=== PATIENT | female | born 1955 | race Caucasian/White ===

== ENCOUNTER 2016-11-05 10:29 | Inpatient (IN) | payer OTHER ==
[~2016-11-05] VITALS: Ht 160 cm; Wt 97.0 kg
[~2016-11-05 10:29] MED LIST: ADVAIR HFA120 INHAL1 IH; ADVIL,NUPRIN,M200 MG PO; ALIVE WOMEN'S1 EAC1 PO; ATIVAN0.5 MG PO; B COMPLETE1 EACH PO; BACTRIM,SEPT1 TABLET PO; BISOPROLOL FUMAR5 MG PO; BUSPAR10 MG PO; BUSPAR15 MG PO; CELEXA20 MG PO; CITALOPRAM HBR20 MG PO; CLOTRIMAZOLE-BE15 GM TP; COZAAR100 MG PO; CRESTOR10 MG PO; CYANOCOBAL1000 MCG/2 IM; DAILY VITE WIT1 EACH PO; DAILY VITE1 EAC1 PO; DILAUDID4 MG PO; ERGOCALCIF50000 UNIT PO; FIBER500 MG PO; FUROSEMIDE40 MG PO; GABAPENTIN600 MG PO; K-DUR10 MEQ PO; K-DUR20 MEQ PO; LASIX20 MG PO; LASIX40 MG PO; LEVAQUIN500 MG PO; LEVAQUIN750 MG PO; LOPRESSOR50 MG PO; LORAZEPAM0.5 MG PO; LORTISONE CREAM TP; LOSARTAN POTAS100 MG PO; LOTRISONE15 GM TP; MORPHINE SULFA100 M2 PO; MORPHINE SULFAT15 MG PO; MOTRIN800 MG PO; MS CONTIN,ORAMO15 M1 PO; MS CONTIN,ORAMO60 MG PO; NEURONTIN300 MG PO; NYSTATIN100000 UN1 PO; OPANA ER40 MG PO; PRADAXA75 MG PO; PREDNISONE10 MG PO; PROAIR HFA8.5 GM IH; PROBIOTIC1 EAC1 PO; PROTONIX40 MG PO; SEROQUEL XR150 MG PO; SPIRIVA RESPIMAT4 GM IH; SPIRONOLACTONE25 MG GT; SYMBICORT60 INHALAT IH; WELLBUTRIN XL150 MG PO; ZEBETA5 MG PO
[2016-11-05 10:54] LABS: POINT-OF-CARE METER ID UU13113702
[2016-11-05 11:05] LABS: BASOPHIL COUNT 0.1 K/uL (0-0.1); EOSINOPHIL (%) 0.5 % (0-5); EOSINOPHIL COUNT 0.1 K/uL (0-0.3); HEMATOCRIT 44.1 % (36.0-46.0); IMMATURE GRANULOCYTE COUNT 0.2 K/uL; INSTRUMENT ABS NEUTROPHIL CT 9.8 K/uL; LYMPHOCYTE COUNT 5.9 K/uL (1.0-2.8); MCH 31.1 PG (29.0-34.0); MCHC 32.2 G/DL (30.0-36.0); MCV 96.5 FL (83-99); MEAN PLAT.VOLUME 9.6 uM^3 (9.5-12.4); MONOCYTE (%) 7.8 % (3-12); MONOCYTE COUNT 1.4 K/uL (0-0.8); NEUTROPHIL (%) 56.4 % (45-76); NEUTROPHIL COUNT 9.8 K/uL (1.8-6.4); NRBC (%) 0.1 /100 WBC (0-0); PLATELET COUNT 304 K/uL (156-360); RBC DIS.WIDTH-CV 14.2 % (11.8-14.6); RBC DIS.WIDTH-SD 49.3 % (39-53); RED BLOOD COUNT 4.57 M/uL (3.80-5.20); WHITE BLOOD COUNT 17.4 K/uL (4.1-10.2)
[2016-11-05 11:15] LABS: INTER. NORMALIZED RATIO 1.1; PROTHROMBIN TIME 10.7 (9.2-11.2); PTT 36.8 (25-32)
[2016-11-05 11:21] LABS: CHLORIDE 105 mEq/L (99-109); SODIUM 138 mEq/L (136-147)
[2016-11-05 11:23] LABS: AMYLASE 58 IU/L (1-118)
[2016-11-05 11:24] LABS: GLUCOSE 265 mg/dL (70-99)
[2016-11-05 11:25] LABS: ANION GAP 24 MEQ/L (2-14); TOTAL BILIRUBIN 0.3 mg/dL (0.0-1.0)
[2016-11-05 11:26] LABS: SERUM ETHYL ALCOHOL < 10 mg/dL
[2016-11-05 11:27] LABS: GFR ESTIMATE (CALCULATED) 40 mL/min/
[2016-11-05 11:28] LABS: TROP-I INTERPRETATION NEGATIVE; TROPONIN-I < 0.01 ng/mL (0.0-0.30)
[2016-11-05 11:28] LABS: ALKALINE PHOSPHATASE 153 IU/L (3-129)
[2016-11-05 11:29] LABS: UREA NITROGEN (BUN) 17 mg/dL (9-23)
[2016-11-05 11:31] LABS: SALICYLATE < 5.0 MG/DL (15-30)
[2016-11-05 11:32] LABS: LIPASE 47 U/L (1.0-51.0)
[2016-11-05 13:28] LABS: CHLORIDE 106 mEq/L (99-109); POTASSIUM 4.1 mEq/L (3.7-5.4); SODIUM 137 mEq/L (136-147)
[2016-11-05 13:31] LABS: ANION GAP 12 MEQ/L (2-14); GLUCOSE 80 mg/dL (70-99)
[2016-11-05 13:34] LABS: GFR ESTIMATE (CALCULATED) 53 mL/min/
[2016-11-05 13:35] LABS: UREA NITROGEN (BUN) 17 mg/dL (9-23)
[2016-11-05] MEDS ORDERED: ZEBETA10 MG PO (15:11)
[2016-11-05] MEDS ORDERED: MORPHINE SULFA100 M2 PO (15:12)
[2016-11-05] MEDS ORDERED: POTASSIUM CHLO10 ME4 PO (15:21)
[2016-11-05] MEDS ORDERED: FOLIC ACID0.8 M1 PO (15:21)
[2016-11-05] MEDS ORDERED: LOSARTAN POTAS100 MG PO (15:22)
[2016-11-05] MEDS ORDERED: LASIX40 MG PO (15:22)
[2016-11-05 15:35] LABS: SERUM ETHYL ALCOHOL < 10 mg/dL
[2016-11-05 16:15] LABS: ADD MIUA? YES; BILIRUBIN NEGATIVE; BLOOD SMALL; COLOR YELLOW ((YELLOW)); GLUCOSE (STRIP) NEGATIVE; KETONES NEGATIVE; LEUKOCYTES TRACE; NITRITE NEGATIVE; PROTEIN (STRIP) 100; SPECIFIC GRAVITY 1.013 (1.000-1.030); UROBILINOGEN 0.2 MG/DL (0.2-1.0)
[2016-11-05 16:30] LABS: BACTERIA NONE SEEN /HPF; EPITHELIAL CELLS 1+ /HPF; HYALINE CASTS 0-5 /LPF; MUCUS TRACE /LPF; RED BLOOD CELLS 0-5 /HPF (0-5); UCUL ADDED? NO; WHITE BLOOD CELLS 0-5 /HPF (0-5)
[2016-11-05 16:59] VITALS: BP 159/83
[2016-11-05 17:17] LABS: ADD MEDTOX COMMENT Y; AMPHETAMINE NEGATIVE (500 ng/mL); BARBITURATES NEGATIVE (200 ng/mL); BENZODIAZEPINES NEGATIVE (150 ng/mL); COCAINE NEGATIVE (150 ng/mL); INTERNAL CONTROLS VALID? YES; METHADONE NEGATIVE (200 ng/mL); METHAMPHETAMINE NEGATIVE (500 ng/mL); OPIATES (MORPHINE) PRESUMPTIVE POSITIVE (100 ng/mL); OXYCODONE NEGATIVE (100 ng/mL); PHENCYCLIDINE NEGATIVE (25 ng/mL); PROPOXYPHENE NEGATIVE (300 ng/mL); THC CANNABINOIDS NEGATIVE (50 ng/mL); TRICYCLIC ANTIDEPRESSANTS NEGATIVE (300 ng/mL)
[2016-11-05 19:25] VITALS: BP 164/79
[2016-11-05 20:53] LABS: TROP-I INTERPRETATION INDETERMINATE; TROPONIN-I 0.37 ng/mL (0.0-0.30)
[2016-11-05 23:33] VITALS: BP 121/65
[2016-11-06 02:37] LABS: TROP-I INTERPRETATION NEGATIVE; TROPONIN-I 0.25 ng/mL (0.0-0.30)
[2016-11-06 04:20] VITALS: BP 138/65
[2016-11-06 07:49] VITALS: BP 119/65
[2016-11-06 07:53] LABS: ANION GAP 8 MEQ/L (2-14); CHLORIDE 109 MEQ/L (99-109); GFR ESTIMATE (CALCULATED) 40 mL/min/; GLUCOSE 98 mg/dL (70-99); HDL CHOLESTEROL 40 MG/DL (Desirable>=50); LDL CHOLESTEROL 26 mg/dL (Desirable<100); NON-HDL CHOLESTEROL 102 mg/dL (Desirable<160); POTASSIUM 3.7 MEQ/L (3.7-5.4); SAMPLE HEMOLYSIS CHECK 0; SAMPLE ICTERIC CHECK 0; SAMPLE LIPEMIA CHECK 0; SODIUM 141 MEQ/L (136-147); TOTAL CHOLESTEROL 142 mg/dL (Desirable<200); TRIGLYCERIDES 380 MG/DL (Normal: <150); UREA NITROGEN (BUN) 22 mg/dL (9-23)
[2016-11-06 08:02] LABS: HEMATOCRIT 33.3 % (36.0-46.0); MCH 31.5 PG (29.0-34.0); MCHC 33.3 G/DL (30.0-36.0); MCV 94.6 FL (83-99); RBC DIS.WIDTH-CV 14.7 % (11.8-14.6); RBC DIS.WIDTH-SD 49.7 % (39-53)
[2016-11-06 08:04] LABS: RED BLOOD COUNT 3.52 M/uL (3.80-5.20); WHITE BLOOD COUNT 6.5 K/uL (4.1-10.2)
[2016-11-06 08:37] LABS: Estimated Average Glucose 105 mg/dL (70-123); HEMOGLOBIN A1c (GLYCOHEMOGLOB) 5.3 % HGB (Below 5.7)
[2016-11-06 09:36] LABS: PLATELET COUNT UNABLE TO REPORT K/uL (156-360)
[2016-11-06 11:50] VITALS: BP 125/65
[2016-11-06 16:02] VITALS: BP 148/79
[2016-11-06 19:50] VITALS: BP 143/66
[2016-11-06 23:38] VITALS: BP 134/73
[2016-11-07 03:59] VITALS: BP 170/80
[2016-11-07 05:50] LABS: EOSINOPHIL COUNT 0.1 K/uL (0-0.3); HEMATOCRIT 35.1 % (36.0-46.0); IMMATURE GRANULOCYTE (%) 0.3 % (0.0-0.7); INSTRUMENT ABS NEUTROPHIL CT 4.7 K/uL; LYMPHOCYTE COUNT 1.9 K/uL (1.0-2.8); MCH 31.1 PG (29.0-34.0); MCV 94.1 FL (83-99); MEAN PLAT.VOLUME 9.5 uM^3 (9.5-12.4); MONOCYTE (%) 8.8 % (3-12); MONOCYTE COUNT 0.7 K/uL (0-0.8); NEUTROPHIL (%) 63.2 % (45-76); NEUTROPHIL COUNT 4.7 K/uL (1.8-6.4); RBC DIS.WIDTH-CV 14.6 % (11.8-14.6); RBC DIS.WIDTH-SD 50.2 % (39-53); RED BLOOD COUNT 3.73 M/uL (3.80-5.20); WHITE BLOOD COUNT 7.4 K/uL (4.1-10.2)
[2016-11-07 05:52] LABS: PLATELET COUNT 195 K/uL (156-360)
[2016-11-07 06:09] LABS: ANION GAP 7 MEQ/L (2-14); CHLORIDE 113 MEQ/L (99-109); GFR ESTIMATE (CALCULATED) 44 mL/min/; GLUCOSE 105 mg/dL (70-99); POTASSIUM 4.2 MEQ/L (3.7-5.4); SAMPLE HEMOLYSIS CHECK 0; SAMPLE ICTERIC CHECK 0; SAMPLE LIPEMIA CHECK 0; SODIUM 143 MEQ/L (136-147); UREA NITROGEN (BUN) 27 mg/dL (9-23)
[2016-11-07 07:54] VITALS: BP 163/89
[2016-11-07] MEDS ORDERED: LOSARTAN POTAS100 MG PO ×2 (11:34→16:18)
[2016-11-07] MEDS ORDERED: GABAPENTIN600 MG PO ×4 (11:35→16:18)
[2016-11-07 11:45] VITALS: BP 124/69
[2016-11-07] MEDS ORDERED: SPIRIVA RESPIMAT4 GM IH (16:18)
[2016-11-07] MEDS ORDERED: SEROQUEL XR150 MG PO (16:18)
[2016-11-07] MEDS ORDERED: BUSPAR15 MG PO (16:18)
[2016-11-07] MEDS ORDERED: Thiamine,Vitamin B1 PO (16:18)
[2016-11-07] MEDS ORDERED: CIPRODEX OTIC7.5 ML LEFT EAR (16:18)
[2016-11-07] MEDS ORDERED: LOPRESSOR100 M1 PO (16:18)
[2016-11-07] MEDS ORDERED: ZEBETA10 MG PO (16:18)
[2016-11-07] MEDS ORDERED: LOTRISONE15 GM TP (16:18)
[2016-11-07] MEDS ORDERED: GABAPENTIN300 MG PO (16:18)
[2016-11-07] MEDS ORDERED: ADVAIR HFA120 INHAL1 IH ×2 (16:18)
[2016-11-07] MEDS ORDERED: FOLIC ACID1 MG PO (16:18)
[2016-11-07] MEDS ORDERED: ERGOCALCIF50000 UNIT PO (16:18)
[2016-11-07] MEDS ORDERED: PROTONIX40 MG PO (16:18)
[2016-11-07] MEDS ORDERED: QUETIAPINE FUMA25 MG PO (16:18)
[2016-11-07] MEDS ORDERED: LASIX40 MG PO (16:18)
== END 2016-11-07 17:50 | disposition home or self-care (01) | DRG 101 ==
LOC: EME → EDBD 10:29 → EME 10:29 → EDSEX 10:29 → EDOF 14:11 → 3EAST 14:11
PROVIDERS: Emergency Medicine; Hospitalist; Internal Medicine
DX: R56.9 Unspecified convulsions (principal); T40.605A Adverse effect of unspecified narcotics, initial encounter; E87.2 Acidosis; F11.20 Opioid dependence, uncomplicated; F10.129 Alcohol abuse with intoxication, unspecified; F31.9 Bipolar disorder, unspecified; J44.9 Chronic obstructive pulmonary disease, unspecified; F17.200 Nicotine dependence, unspecified, uncomplicated; I10 Essential (primary) hypertension; Z89.512 Acquired absence of left leg below knee; Z88.8 Allergy status to other drugs, medicaments and biological substances; D72.829 Elevated white blood cell count, unspecified; E66.9 Obesity, unspecified; Z68.37 Body mass index [BMI] 37.0-37.9, adult; G89.29 Other chronic pain; F03.90 Unspecified dementia, unspecified severity, without behavioral disturbance, psychotic disturbance, mood disturbance, and anxiety; E78.5 Hyperlipidemia, unspecified; K21.9 Gastro-esophageal reflux disease without esophagitis; E11.51 Type 2 diabetes mellitus with diabetic peripheral angiopathy without gangrene; M06.9 Rheumatoid arthritis, unspecified
CPT/HCPCS: 70450; 71275; 80048; 80048 91; 80053; 80061; 81003; 82150; 82948; 83036; 83605; 83690; 84443; 84484; 84999; 85025; 85027; 85610; 85730; 87040; 93005; 93880; 94640 76; 94760; 95819; 99202; 99281; 99285; G0480; J1650; J2060; J3360; J7030

== ENCOUNTER 2016-11-11 08:18 | Emergency (ER) | payer OTHER ==
[~2016-11-11] VITALS: Ht 154.9 cm; Wt 84.0 kg
[~2016-11-11 08:18] MED LIST changes: +CIPRODEX OTIC7.5 ML LEFT EAR; +FOLIC ACID0.8 M1 PO; +FOLIC ACID1 MG PO; +GABAPENTIN300 MG PO; +LOPRESSOR100 M1 PO; +POTASSIUM CHLO10 ME4 PO; +QUETIAPINE FUMA25 MG PO; +Thiamine,Vitamin B1 PO; +ZEBETA10 MG PO
[2016-11-11 09:29] LABS: ADD MIUA? YES; BILIRUBIN NEGATIVE; BLOOD NEGATIVE; COLOR YELLOW ((YELLOW)); GLUCOSE (STRIP) NEGATIVE; KETONES NEGATIVE; LEUKOCYTES NEGATIVE; NITRITE NEGATIVE; PROTEIN (STRIP) 30; SPECIFIC GRAVITY 1.015 (1.000-1.030); UROBILINOGEN 0.2 MG/DL (0.2-1.0)
[2016-11-11 09:37] LABS: EOSINOPHIL (%) 0.1 % (0-5); HEMATOCRIT 34.6 % (36.0-46.0); IMMATURE GRANULOCYTE (%) 0.5 % (0.0-0.7); IMMATURE GRANULOCYTE COUNT 0.1 K/uL; INSTRUMENT ABS NEUTROPHIL CT 12.4 K/uL; LYMPHOCYTE COUNT 0.4 K/uL (1.0-2.8); MCH 31.8 PG (29.0-34.0); MCHC 32.4 G/DL (30.0-36.0); MEAN PLAT.VOLUME 10.1 uM^3 (9.5-12.4); MONOCYTE (%) 7.6 % (3-12); MONOCYTE COUNT 1.1 K/uL (0-0.8); NEUTROPHIL COUNT 12.4 K/uL (1.8-6.4); PLATELET COUNT 195 K/uL (156-360); RBC DIS.WIDTH-CV 15.1 % (11.8-14.6); RBC DIS.WIDTH-SD 54.6 % (39-53); RED BLOOD COUNT 3.52 M/uL (3.80-5.20)
[2016-11-11 09:38] LABS: MCV 98.3 FL (83-99); WHITE BLOOD COUNT 13.9 K/uL (4.1-10.2)
[2016-11-11 09:56] LABS: TROP-I INTERPRETATION NEGATIVE; TROPONIN-I 0.02 ng/mL (0.0-0.30)
[2016-11-11 09:59] LABS: CHLORIDE 111 mEq/L (99-109); SODIUM 142 mEq/L (136-147)
[2016-11-11 10:00] LABS: BACTERIA 1+ /HPF; EPITHELIAL CELLS 1+ /HPF; MUCUS 2+ /LPF; RED BLOOD CELLS NONE SEEN /HPF (0-5); WHITE BLOOD CELLS NONE SEEN /HPF (0-5)
[2016-11-11 10:02] LABS: GLUCOSE 158 mg/dL (70-99)
[2016-11-11 10:03] LABS: ANION GAP 13 MEQ/L (2-14)
[2016-11-11 10:04] LABS: TOTAL BILIRUBIN 0.3 mg/dL (0.0-1.0)
[2016-11-11 10:05] LABS: ALKALINE PHOSPHATASE 124 IU/L (3-129); GFR ESTIMATE (CALCULATED) 22 mL/min/
[2016-11-11 10:06] LABS: UREA NITROGEN (BUN) 42 mg/dL (9-23)
[2016-11-11 10:39] LABS: INFLUENZA A VIRAL ANTIGEN NEGATIVE; INFLUENZA B VIRAL ANTIGEN NEGATIVE
[2016-11-11 14:36] VITALS: BP 95/53
== END 2016-11-11 14:39 | disposition short-term general hospital (02) ==
LOC: EME 08:18
PROVIDERS: Physician Assistant
PROC: 05HM33Z Insertion of Infusion Device into Right Internal Jugular Vein, Percutaneous Approach (ICD-10-PCS; principal; 2016-11-11)
DX: J44.0 Chronic obstructive pulmonary disease with (acute) lower respiratory infection (principal); J18.1 Lobar pneumonia, unspecified organism; R65.21 Severe sepsis with septic shock; I95.9 Hypotension, unspecified; K21.9 Gastro-esophageal reflux disease without esophagitis; I10 Essential (primary) hypertension; G89.29 Other chronic pain; Z86.73 Personal history of transient ischemic attack (TIA), and cerebral infarction without residual deficits; M06.9 Rheumatoid arthritis, unspecified; M32.9 Systemic lupus erythematosus, unspecified; F17.210 Nicotine dependence, cigarettes, uncomplicated; Z86.718 Personal history of other venous thrombosis and embolism; Z86.711 Personal history of pulmonary embolism; Z89.512 Acquired absence of left leg below knee; Z98.1 Arthrodesis status
CPT/HCPCS: 71010; 71020; 80053; 81003; 83605; 84484; 85025; 87040; 87086; 87502; 93005; 99281; 99285; J2543; J3370; J7030

== ENCOUNTER 2017-02-21 15:26 | Observation (INO) | payer OTHER ==
[~2017-02-21] VITALS: Ht 157.5 cm; Wt 92.4 kg
[2017-02-21 16:21] LABS: MCV 88.6 FL (83-99); MEAN PLAT.VOLUME 9.1 uM^3 (9.5-12.4); PLATELET COUNT 206 K/uL (156-360); RBC DIS.WIDTH-CV 13.9 % (11.8-14.6); RBC DIS.WIDTH-SD 44.8 % (39-53); RED BLOOD COUNT 4.29 M/uL (3.80-5.20); WHITE BLOOD COUNT 11.6 K/uL (4.1-10.2)
[2017-02-21 16:34] LABS: CHLORIDE 104 mEq/L (99-109); POTASSIUM 3.7 mEq/L (3.7-5.4); SODIUM 136 mEq/L (136-147)
[2017-02-21 16:35] LABS: GLUCOSE 118 mg/dL (70-99)
[2017-02-21 16:37] LABS: ANION GAP 16 MEQ/L (2-14)
[2017-02-21 16:39] LABS: GFR ESTIMATE (CALCULATED) > 59 mL/min/
[2017-02-21 16:40] LABS: UREA NITROGEN (BUN) 12 mg/dL (9-23)
[2017-02-21 16:46] LABS: TROP-I INTERPRETATION NEGATIVE; TROPONIN-I 0.02 ng/mL (0.0-0.30)
[2017-02-21 18:39] LABS: ADD MIUA? YES; BILIRUBIN NEGATIVE; BLOOD SMALL; COLOR COLORLESS ((YELLOW)); GLUCOSE (STRIP) NEGATIVE; KETONES NEGATIVE; LEUKOCYTES NEGATIVE; NITRITE NEGATIVE; PROTEIN (STRIP) 30; SPECIFIC GRAVITY 1.003 (1.000-1.030); UROBILINOGEN 0.2 MG/DL (0.2-1.0)
[2017-02-21 18:45] LABS: BACTERIA RARE /HPF; EPITHELIAL CELLS NONE SEEN /HPF; MUCUS NONE SEEN /LPF; RED BLOOD CELLS 0-5 /HPF (0-5); WHITE BLOOD CELLS 0-5 /HPF (0-5)
[2017-02-21] MEDS ORDERED: GABAPENTIN600 MG PO (20:22)
[2017-02-21] MEDS ORDERED: LOSARTAN POTAS100 MG PO (20:23)
[2017-02-21 23:03] VITALS: BP 136/64
[2017-02-22 00:55] LABS: TROP-I INTERPRETATION NEGATIVE; TROPONIN-I 0.02 ng/mL (0.0-0.30)
[2017-02-22 04:03] VITALS: BP 97/55
[2017-02-22 09:10] VITALS: BP 121/63
[2017-02-22 09:44] LABS: HEMATOCRIT 36.4 % (36.0-46.0); MCH 31.6 PG (29.0-34.0); MCHC 34.1 G/DL (30.0-36.0); MEAN PLAT.VOLUME 9.6 uM^3 (9.5-12.4); PLATELET COUNT 189 K/uL (156-360); RBC DIS.WIDTH-CV 14.5 % (11.8-14.6); RBC DIS.WIDTH-SD 48.8 % (39-53); RED BLOOD COUNT 3.92 M/uL (3.80-5.20); WHITE BLOOD COUNT 7.4 K/uL (4.1-10.2)
[2017-02-22 10:06] LABS: ANION GAP 12 MEQ/L (2-14); CHLORIDE 106 MEQ/L (99-109); GLUCOSE 89 mg/dL (70-99); POTASSIUM 4.2 MEQ/L (3.7-5.4); SAMPLE HEMOLYSIS CHECK 0; SAMPLE ICTERIC CHECK 0; SAMPLE LIPEMIA CHECK 0; SODIUM 140 MEQ/L (136-147)
[2017-02-22 10:11] LABS: GFR ESTIMATE (CALCULATED) 28 mL/min/; TROP-I INTERPRETATION NEGATIVE; TROPONIN-I 0.02 ng/mL (0.0-0.30); UREA NITROGEN (BUN) 23 mg/dL (9-23)
[2017-02-22 10:17] LABS: MCV 92.9 FL (83-99)
[2017-02-22 11:58] VITALS: BP 112/64
[2017-02-22] MEDS ORDERED: LOPRESSOR100 M1 PO (12:10)
[2017-02-22] MEDS ORDERED: QUETIAPINE FUMA25 MG PO (12:10)
[2017-02-22] MEDS ORDERED: FUROSEMIDE40 MG PO (12:10)
[2017-02-22] MEDS ORDERED: BUSPAR15 MG PO (12:10)
== END 2017-02-22 14:25 | disposition home or self-care (01) ==
LOC: EME 15:26 → 5WEST 20:29 → EDOF 20:29 → 5WEST 22:47
PROVIDERS: Hospitalist; Physician Assistant
DX: R51 Headache (principal); I10 Essential (primary) hypertension; R07.9 Chest pain, unspecified; E78.5 Hyperlipidemia, unspecified; J44.9 Chronic obstructive pulmonary disease, unspecified; F17.200 Nicotine dependence, unspecified, uncomplicated; I73.9 Peripheral vascular disease, unspecified; E11.9 Type 2 diabetes mellitus without complications; Z89.512 Acquired absence of left leg below knee; Z86.73 Personal history of transient ischemic attack (TIA), and cerebral infarction without residual deficits; Z86.19 Personal history of other infectious and parasitic diseases; T46.5X6A Underdosing of other antihypertensive drugs, initial encounter; T38.3X6A Underdosing of insulin and oral hypoglycemic [antidiabetic] drugs, initial encounter; Z86.711 Personal history of pulmonary embolism; F10.21 Alcohol dependence, in remission; Z95.828 Presence of other vascular implants and grafts; Z88.8 Allergy status to other drugs, medicaments and biological substances
CPT/HCPCS: 70450; 71020; 80048; 81003; 84484; 85027; 93005; 93971; 94640; 94640 76; 94799; 99281; 99285; G0378; J1650; J1940

== ENCOUNTER 2017-05-29 07:45 | Day surgery (SDC) | payer OTHER ==
[~2017-05-29] VITALS: Ht 157.5 cm; Wt 104.0 kg
[~2017-05-29 07:45] MED LIST changes: +METOPROLOL SUC100 MG PO; +TORSEMIDE20 MG PO
[2017-05-29] MEDS ORDERED: NITROGLYCERIN0.4 MG SL (08:24)
== END 2017-05-29 15:20 | disposition home or self-care (01) ==
LOC: CATH 07:45
DX: I25.10 Atherosclerotic heart disease of native coronary artery without angina pectoris (principal); I27.20 Pulmonary hypertension, unspecified; J44.9 Chronic obstructive pulmonary disease, unspecified; I13.0 Hypertensive heart and chronic kidney disease with heart failure and stage 1 through stage 4 chronic kidney disease, or unspecified chronic kidney disease; N18.3 Chronic kidney disease, stage 3 (moderate); I50.32 Chronic diastolic (congestive) heart failure; M32.9 Systemic lupus erythematosus, unspecified; E66.01 Morbid (severe) obesity due to excess calories; Z68.41 Body mass index [BMI] 40.0-44.9, adult; Z86.718 Personal history of other venous thrombosis and embolism; Z89.511 Acquired absence of right leg below knee; Z86.711 Personal history of pulmonary embolism; Z86.73 Personal history of transient ischemic attack (TIA), and cerebral infarction without residual deficits; F17.200 Nicotine dependence, unspecified, uncomplicated; Z82.49 Family history of ischemic heart disease and other diseases of the circulatory system
CPT/HCPCS: 93005; C1769; C1887; J1644; J2250; J3010

== ENCOUNTER 2017-08-21 03:22 | Inpatient (IN) | payer OTHER ==
[~2017-08-21] VITALS: Ht 157.5 cm; Wt 104.3 kg
[~2017-08-21 03:22] MED LIST changes: +NITROGLYCERIN0.4 MG SL
[2017-08-21 04:24] LABS: HEMATOCRIT 31.2 % (36.0-46.0); HEMOGLOBIN 10.8 G/DL (11.9-15.5); MCH 32.8 PG (29.0-34.0); MCHC 34.6 G/DL (30.0-36.0); MCV 94.8 FL (83-99); PLATELET COUNT 147 K/uL (156-360); RBC DIS.WIDTH-CV 15.5 % (11.8-14.6); RBC DIS.WIDTH-SD 53.8 % (39-53); RED BLOOD COUNT 3.29 M/uL (3.80-5.20); WHITE BLOOD COUNT 7.7 K/uL (4.1-10.2)
[2017-08-21 04:33] LABS: CHLORIDE 99 mEq/L (99-109); POTASSIUM 3.1 mEq/L (3.7-5.4); SODIUM 135 mEq/L (136-147)
[2017-08-21 04:35] LABS: GLUCOSE 190 mg/dL (70-99)
[2017-08-21 04:38] LABS: CREATININE 1.6 mg/dL (0.6-1.3); GFR ESTIMATE (CALCULATED) 35 mL/min/
[2017-08-21 04:39] LABS: UREA NITROGEN (BUN) 26 mg/dL (9-23)
[2017-08-21] MEDS ORDERED: AZITHROMYCIN250 MG PO (07:25)
[2017-08-21 08:23] LABS: TROP-I INTERPRETATION NEGATIVE; TROPONIN-I < 0.01 ng/mL (0.0-0.30)
[2017-08-21 10:32] LABS: BASE EXCESS 5.3 mEq/L (-3 to +3); BICARBONATE 32.7 mEq/L (22-26); CARBOXY HGB 7.1 % (0-5); PO2 77 mm Hg (80-100); pH 7.33 (7.35-7.45)
[2017-08-21 10:33] LABS: COMMENTS - BLOOD GASES A+C+; DEVICE NC; O2 FLOW 4 L/MIN; PCO2 62 mm Hg (35-45); SITE LR; TOTAL RESP RATE 13 resp/min
[2017-08-21 14:29] VITALS: BP 162/90
[2017-08-21 14:43] LABS: TROP-I INTERPRETATION NEGATIVE; TROPONIN-I < 0.01 ng/mL (0.0-0.30)
[2017-08-21 15:28] VITALS: BP 144/64
[2017-08-21 20:42] VITALS: BP 133/90
[2017-08-21 20:50] LABS: TROP-I INTERPRETATION NEGATIVE; TROPONIN-I < 0.01 ng/mL (0.0-0.30)
[2017-08-22 01:09] VITALS: BP 130/59
[2017-08-22 04:46] VITALS: BP 122/59
[2017-08-22 06:05] LABS: CHLORIDE 101 MEQ/L (99-109); CREATININE 1.7 MG/DL (0.6-1.3); GFR ESTIMATE (CALCULATED) 32 mL/min/; SODIUM 138 MEQ/L (136-147); UREA NITROGEN (BUN) 28 mg/dL (9-23)
[2017-08-22 06:06] LABS: GLUCOSE 330 mg/dL (70-99); POTASSIUM 4.5 MEQ/L (3.7-5.4)
[2017-08-22 07:17] VITALS: BP 133/64
[2017-08-22 12:25] VITALS: BP 167/84
[2017-08-22] MEDS ORDERED: ADVIL200 MG PO (12:47)
[2017-08-22] MEDS ORDERED: CLOTRIMAZOLE-BE30 ML TP (12:48)
[2017-08-22 16:36] VITALS: BP 160/78
[2017-08-22 19:20] VITALS: BP 152/74
[2017-08-23] VITALS (7 sets, daily range): BP systolic 145–196; BP diastolic 70–97
[2017-08-24 00:22] VITALS: BP 175/79
[2017-08-24 02:10] LABS: BASE EXCESS 9.1 mEq/L (-3 to +3); BICARBONATE 34.1 mEq/L (22-26); CARBOXY HGB 2.7 % (0-5); COMMENTS - BLOOD GASES C+; DEVICE NC; METHEMOGLOBIN 1.5 % (0-1.5); O2 FLOW 3 L/MIN; PCO2 48 mm Hg (35-45); PO2 62 mm Hg (80-100); SITE LB; TOTAL RESP RATE 16 resp/min; pH 7.46 (7.35-7.45)
[2017-08-24 05:22] VITALS: BP 170/82
[2017-08-24 08:25] VITALS: BP 134/88
[2017-08-24 10:22] LABS: HEMATOCRIT 31.5 % (36.0-46.0); HEMOGLOBIN 10.8 G/DL (11.9-15.5); MCH 32.5 PG (29.0-34.0); MCHC 34.3 G/DL (30.0-36.0); MCV 94.9 FL (83-99); PLATELET COUNT 130 K/uL (156-360); RBC DIS.WIDTH-CV 15.1 % (11.8-14.6); RBC DIS.WIDTH-SD 51.4 % (39-53); RED BLOOD COUNT 3.32 M/uL (3.80-5.20); WHITE BLOOD COUNT 14.3 K/uL (4.1-10.2)
[2017-08-24 11:02] LABS: ALBUMIN 3.3 G/DL (3.2-4.8); ALKALINE PHOSPHATASE 81 IU/L (3-129); ALT (GPT) 23 IU/L (3-49); AST (GOT) 25 IU/L (2-34); CHLORIDE 97 MEQ/L (99-109); CREATININE 1.5 MG/DL (0.6-1.3); GFR ESTIMATE (CALCULATED) 37 mL/min/; GLUCOSE 392 mg/dL (70-99); POTASSIUM 3.6 MEQ/L (3.7-5.4); SODIUM 138 MEQ/L (136-147); TOTAL BILIRUBIN 0.7 MG/DL (0.0-1.0); TOTAL PROTEIN 6.4 G/DL (6.4-8.3); UREA NITROGEN (BUN) 35 mg/dL (9-23)
[2017-08-24 11:22] VITALS: BP 180/97
[2017-08-24 15:19] VITALS: BP 148/87
[2017-08-24 20:00] VITALS: BP 168/98
[2017-08-25] VITALS (7 sets, daily range): BP systolic 142–166; BP diastolic 72–90
[2017-08-25 11:19] LABS: CHLORIDE 96 MEQ/L (99-109); CREATININE 1.5 MG/DL (0.6-1.3); GFR ESTIMATE (CALCULATED) 37 mL/min/; GLUCOSE 330 mg/dL (70-99); POTASSIUM 3.8 MEQ/L (3.7-5.4); SODIUM 138 MEQ/L (136-147); UREA NITROGEN (BUN) 39 mg/dL (9-23)
[2017-08-25 21:14] LABS: HEMOGLOBIN 11.7 G/DL (11.9-15.5); MCH 33.1 PG (29.0-34.0); MCHC 34.4 G/DL (30.0-36.0); PLATELET COUNT 135 K/uL (156-360); RBC DIS.WIDTH-CV 15.1 % (11.8-14.6); RBC DIS.WIDTH-SD 52.8 % (39-53); RED BLOOD COUNT 3.54 M/uL (3.80-5.20); WHITE BLOOD COUNT 11.9 K/uL (4.1-10.2)
[2017-08-25 21:31] LABS: CHLORIDE 94 MEQ/L (99-109); CREATININE 1.4 MG/DL (0.6-1.3); GFR ESTIMATE (CALCULATED) 40 mL/min/; GLUCOSE 258 mg/dL (70-99); POTASSIUM 3.7 MEQ/L (3.7-5.4); SODIUM 138 MEQ/L (136-147); UREA NITROGEN (BUN) 40 mg/dL (9-23)
[2017-08-26] VITALS (7 sets, daily range): BP systolic 130–165; BP diastolic 86–105
[2017-08-26 06:58] LABS: CHLORIDE 99 MEQ/L (99-109); CREATININE 1.5 MG/DL (0.6-1.3); GFR ESTIMATE (CALCULATED) 37 mL/min/; GLUCOSE 263 mg/dL (70-99); SODIUM 139 MEQ/L (136-147); UREA NITROGEN (BUN) 44 mg/dL (9-23)
[2017-08-26 07:43] LABS: HEMOGLOBIN A1c (GLYCOHEMOGLOB) 7.1 % HGB (Below 5.7)
[2017-08-27] VITALS (7 sets, daily range): BP systolic 0–182; BP diastolic 0–133
[2017-08-28] VITALS (10 sets, daily range): BP systolic 143–200; BP diastolic 69–104
[2017-08-28 05:54] LABS: HEMATOCRIT 33.2 % (36.0-46.0); HEMOGLOBIN 11.1 G/DL (11.9-15.5); MCH 32.9 PG (29.0-34.0); MCHC 33.4 G/DL (30.0-36.0); MCV 98.5 FL (83-99); PLATELET COUNT 165 K/uL (156-360); RBC DIS.WIDTH-CV 14.7 % (11.8-14.6); RBC DIS.WIDTH-SD 53.4 % (39-53); RED BLOOD COUNT 3.37 M/uL (3.80-5.20); WHITE BLOOD COUNT 6.8 K/uL (4.1-10.2)
[2017-08-28 06:48] LABS: BASOPHIL (%) 0.1 % (0-1); EOSINOPHIL (%) 0 % (0-5); IMMATURE GRANULOCYTE (%) 0.4 % (0.0-0.7); LYMPHOCYTE (%) 4.4 % (15-42); LYMPHOCYTE COUNT 0.3 K/uL (1.0-2.8); MONOCYTE (%) 2.5 % (3-12); MONOCYTE COUNT 0.2 K/uL (0-0.8); NEUTROPHIL (%) 92.6 % (45-76); NEUTROPHIL COUNT 6.3 K/uL (1.8-6.4)
[2017-08-28 08:30] LABS: CHLORIDE 98 MEQ/L (99-109); CREATININE 1.3 MG/DL (0.6-1.3); GFR ESTIMATE (CALCULATED) 44 mL/min/; GLUCOSE 316 mg/dL (70-99); POTASSIUM 4.1 MEQ/L (3.7-5.4); SODIUM 142 MEQ/L (136-147); UREA NITROGEN (BUN) 47 mg/dL (9-23)
[2017-08-29 03:25] VITALS: BP 147/85
[2017-08-29 07:00] LABS: BASOPHIL (%) 0 % (0-1); EOSINOPHIL (%) 0 % (0-5); HEMATOCRIT 32.8 % (36.0-46.0); HEMOGLOBIN 10.9 G/DL (11.9-15.5); IMMATURE GRANULOCYTE (%) 0.3 % (0.0-0.7); LYMPHOCYTE (%) 5.6 % (15-42); LYMPHOCYTE COUNT 0.4 K/uL (1.0-2.8); MCH 32.4 PG (29.0-34.0); MCHC 33.2 G/DL (30.0-36.0); MCV 97.6 FL (83-99); MONOCYTE (%) 4.7 % (3-12); MONOCYTE COUNT 0.3 K/uL (0-0.8); NEUTROPHIL (%) 89.4 % (45-76); NEUTROPHIL COUNT 6.1 K/uL (1.8-6.4); PLATELET COUNT 179 K/uL (156-360); RBC DIS.WIDTH-CV 14.5 % (11.8-14.6); RBC DIS.WIDTH-SD 52.1 % (39-53); RED BLOOD COUNT 3.36 M/uL (3.80-5.20); WHITE BLOOD COUNT 6.8 K/uL (4.1-10.2)
[2017-08-29 07:23] LABS: CHLORIDE 101 MEQ/L (99-109); CREATININE 1.3 MG/DL (0.6-1.3); GFR ESTIMATE (CALCULATED) 44 mL/min/; GLUCOSE 199 mg/dL (70-99); POTASSIUM 4.2 MEQ/L (3.7-5.4); SODIUM 143 MEQ/L (136-147); UREA NITROGEN (BUN) 49 mg/dL (9-23)
[2017-08-29 08:30] VITALS: BP 130/86
[2017-08-29 16:00] VITALS: BP 198/93
[2017-08-29 19:20] VITALS: BP 173/80
[2017-08-29 23:41] VITALS: BP 160/80
[2017-08-30 03:30] VITALS: BP 120/59
[2017-08-30 06:35] LABS: BASOPHIL (%) 0.1 % (0-1); EOSINOPHIL (%) 0 % (0-5); HEMATOCRIT 37.2 % (36.0-46.0); HEMOGLOBIN 12.1 G/DL (11.9-15.5); IMMATURE GRANULOCYTE (%) 0.9 % (0.0-0.7); LYMPHOCYTE (%) 9.1 % (15-42); LYMPHOCYTE COUNT 0.8 K/uL (1.0-2.8); MCH 31.8 PG (29.0-34.0); MCHC 32.5 G/DL (30.0-36.0); MCV 97.9 FL (83-99); MONOCYTE (%) 7.9 % (3-12); MONOCYTE COUNT 0.7 K/uL (0-0.8); NEUTROPHIL COUNT 6.9 K/uL (1.8-6.4); PLATELET COUNT 221 K/uL (156-360); RBC DIS.WIDTH-CV 14.6 % (11.8-14.6); RBC DIS.WIDTH-SD 52.7 % (39-53); WHITE BLOOD COUNT 8.5 K/uL (4.1-10.2)
[2017-08-30 06:38] LABS: CHLORIDE 96 MEQ/L (99-109); CREATININE 1.5 MG/DL (0.6-1.3); GFR ESTIMATE (CALCULATED) 37 mL/min/; GLUCOSE 187 mg/dL (70-99); POTASSIUM 4.1 MEQ/L (3.7-5.4); SODIUM 142 MEQ/L (136-147); UREA NITROGEN (BUN) 57 mg/dL (9-23)
[2017-08-30 07:50] VITALS: BP 145/88
[2017-08-30] MEDS ORDERED: DOXYCYCLINE HY100 M3 PO (12:35)
[2017-08-30] MEDS ORDERED: PREDNISONE10 MG PO (12:36)
[2017-08-30] MEDS ORDERED: NICOTINE PATCH1 EAC2 TD (12:39)
[2017-08-30] MEDS ORDERED: PROAIR RESPICL90 MCG IH (12:39)
[2017-08-30] MEDS ORDERED: SPIRONOLACTONE25 MG PO (12:40)
[2017-08-30] MEDS ORDERED: GABAPENTIN600 MG PO (12:40)
[2017-08-30] MEDS ORDERED: ALPRAZOLAM0.25 M2 PO (12:42)
[2017-08-30] MEDS ORDERED: Robitussin AC,Tussi- PO (12:42)
[2017-08-30 15:53] VITALS: BP 182/84
== END 2017-08-30 18:18 | disposition home health service (06) | DRG 190 ==
LOC: EME 03:22 → 5WEST 11:42 → EDOF 11:42 → ENRESERV 11:47 → 5WEST 13:35 → 4WEST 08-22 11:55 → 5WEST 08-22 11:55 → 2EAST 08-22 11:55 → ENRESERV 08-25 22:27 → 5WEST 08-25 22:27 → ENRESERV 08-26 00:52 → 4WEST 08-26 02:48 → ENRESERV 08-28 07:08 → 2EAST 08-28 11:24
PROVIDERS: Emergency Medicine; Hospitalist; Internal Medicine; Internal Medicine Pulmonary Disease; Nurse Practitioner Adult Health; Physician Assistant
DX: J44.1 Chronic obstructive pulmonary disease with (acute) exacerbation (principal); J69.0 Pneumonitis due to inhalation of food and vomit; J96.01 Acute respiratory failure with hypoxia; J96.02 Acute respiratory failure with hypercapnia; F31.30 Bipolar disorder, current episode depressed, mild or moderate severity, unspecified; I13.0 Hypertensive heart and chronic kidney disease with heart failure and stage 1 through stage 4 chronic kidney disease, or unspecified chronic kidney disease; E66.2 Morbid (severe) obesity with alveolar hypoventilation; Z68.41 Body mass index [BMI] 40.0-44.9, adult; J84.114 Acute interstitial pneumonitis; I50.32 Chronic diastolic (congestive) heart failure; G89.29 Other chronic pain; Y95 Nosocomial condition; N18.9 Chronic kidney disease, unspecified; M32.9 Systemic lupus erythematosus, unspecified; M06.9 Rheumatoid arthritis, unspecified; K21.9 Gastro-esophageal reflux disease without esophagitis; I27.20 Pulmonary hypertension, unspecified; I25.10 Atherosclerotic heart disease of native coronary artery without angina pectoris; E78.5 Hyperlipidemia, unspecified; E87.1 Hypo-osmolality and hyponatremia; F17.210 Nicotine dependence, cigarettes, uncomplicated; E11.22 Type 2 diabetes mellitus with diabetic chronic kidney disease; E11.51 Type 2 diabetes mellitus with diabetic peripheral angiopathy without gangrene; E11.65 Type 2 diabetes mellitus with hyperglycemia; E11.69 Type 2 diabetes mellitus with other specified complication; G43.909 Migraine, unspecified, not intractable, without status migrainosus; F41.9 Anxiety disorder, unspecified; T45.1X5A Adverse effect of antineoplastic and immunosuppressive drugs, initial encounter; I36.1 Nonrheumatic tricuspid (valve) insufficiency; I35.2 Nonrheumatic aortic (valve) stenosis with insufficiency; J84.10 Pulmonary fibrosis, unspecified; Z90.710 Acquired absence of both cervix and uterus; Z89.512 Acquired absence of left leg below knee; Z87.01 Personal history of pneumonia (recurrent); Z86.718 Personal history of other venous thrombosis and embolism; Z86.711 Personal history of pulmonary embolism
CPT/HCPCS: 36600; 71045; 71046; 71250; 74018; 78582; 80048; 80048 91; 80053; 82803; 82948; 83036; 83880; 84443; 84484; 85025; 85027; 85379; 87070; 87205; 87502; 87641; 90686; 93005; 94010; 94640 76; 94799; 97530 GO; 99202; 99281; 99285; A9539; A9540; G0378; G8978 GP CJ; G8979 GP CI; J1644; J1815; J1940; J2920; J2930; J7030; J7512

== ENCOUNTER 2018-01-21 09:51 | Inpatient (IN) | payer OTHER ==
[~2018-01-21] VITALS: Ht 157.5 cm; Wt 99.7 kg
[~2018-01-21 09:51] MED LIST changes: +ADVIL200 MG PO; +ALPRAZOLAM0.25 M2 PO; +AZITHROMYCIN250 MG PO; +CLOTRIMAZOLE-BE30 ML TP; +DOXYCYCLINE HY100 M3 PO; +MORPHINE SULFAT60 MG PO; +NICOTINE PATCH1 EAC2 TD; +PROAIR RESPICL90 MCG IH; +Robitussin AC,Tussi- PO; +SPIRONOLACTONE25 MG PO
[2018-01-21 10:18] LABS: BASOPHIL (%) 0.1 % (0-1); EOSINOPHIL (%) 0.1 % (0-5); HEMATOCRIT 32.7 % (36.0-46.0); HEMOGLOBIN 10.5 G/DL (11.9-15.5); IMMATURE GRANULOCYTE (%) 0.4 % (0.0-0.7); LYMPHOCYTE (%) 9.7 % (15-42); LYMPHOCYTE COUNT 0.8 K/uL (1.0-2.8); MCH 31.3 PG (29.0-34.0); MCHC 32.1 G/DL (30.0-36.0); MCV 97.3 FL (83-99); MONOCYTE (%) 5.2 % (3-12); MONOCYTE COUNT 0.4 K/uL (0-0.8); NEUTROPHIL (%) 84.5 % (45-76); NEUTROPHIL COUNT 6.6 K/uL (1.8-6.4); PLATELET COUNT 246 K/uL (156-360); RBC DIS.WIDTH-CV 15.7 % (11.8-14.6); RBC DIS.WIDTH-SD 55.3 % (39-53); RED BLOOD COUNT 3.36 M/uL (3.80-5.20); WHITE BLOOD COUNT 7.8 K/uL (4.1-10.2)
[2018-01-21 10:28] LABS: CHLORIDE 97 mEq/L (99-109); INTER. NORMALIZED RATIO 1.2; SODIUM 138 mEq/L (136-147)
[2018-01-21 10:29] LABS: GLUCOSE 128 mg/dL (70-99)
[2018-01-21 10:30] LABS: PTT 55.9 SEC (25-37)
[2018-01-21 10:33] LABS: CREATININE 1.5 mg/dL (0.6-1.3); GFR ESTIMATE (CALCULATED) 37 mL/min/
[2018-01-21 10:34] LABS: UREA NITROGEN (BUN) 19 mg/dL (9-23)
[2018-01-21 10:39] LABS: TROP-I INTERPRETATION NEGATIVE; TROPONIN-I 0.07 ng/mL (0.0-0.30)
[2018-01-21 13:13] LABS: TROP-I INTERPRETATION INDETERMINATE; TROPONIN-I 0.35 ng/mL (0.0-0.30)
[2018-01-21 14:46] VITALS: BP 144/78
[2018-01-21] MEDS ORDERED: GABAPENTIN600 MG PO (16:57)
[2018-01-21] MEDS ORDERED: TRESIBA FL200 UNIT/1 SC (17:00)
[2018-01-21] MEDS ORDERED: FERROUS SULFAT324 M1 PO (17:02)
[2018-01-21] MEDS ORDERED: POTASSIUM CHLO20 ME2 PO (17:03)
[2018-01-21] MEDS ORDERED: ACETAMINOPHEN325 M1 PO (17:04)
[2018-01-21] MEDS ORDERED: IBUPROFEN400 MG PO (17:04)
[2018-01-21] MEDS ORDERED: DUONEB 2.5-0.5 M3 ML AEROSOL (17:05)
[2018-01-21] MEDS ORDERED: MILK OF MAGN PO (17:06)
[2018-01-21] MEDS ORDERED: DULCOLAX10 MG PR (17:06)
[2018-01-21] MEDS ORDERED: NICORETTE4 MG BC (17:07)
[2018-01-21 19:04] LABS: TROP-I INTERPRETATION POSITIVE; TROPONIN-I 0.91 ng/mL (0.0-0.30)
[2018-01-21 20:16] VITALS: BP 116/80
[2018-01-21 23:55] VITALS: BP 123/68
[2018-01-22 02:11] LABS: TROP-I INTERPRETATION POSITIVE
[2018-01-22 02:12] LABS: TROPONIN-I 0.74 ng/mL (0.0-0.30)
[2018-01-22 04:00] VITALS: BP 102/68
[2018-01-22 07:17] VITALS: BP 129/77
[2018-01-22 10:39] VITALS: BP 135/69
[2018-01-22 15:24] VITALS: BP 129/74
[2018-01-22 19:11] VITALS: BP 128/64
[2018-01-23 00:52] VITALS: BP 127/71
[2018-01-23 03:12] VITALS: BP 141/86
[2018-01-23 05:07] LABS: BASOPHIL (%) 0.4 % (0-1); EOSINOPHIL (%) 1.3 % (0-5); EOSINOPHIL COUNT 0.1 K/uL (0-0.3); HEMATOCRIT 31.5 % (36.0-46.0); HEMOGLOBIN 9.9 G/DL (11.9-15.5); IMMATURE GRANULOCYTE (%) 0.2 % (0.0-0.7); LYMPHOCYTE (%) 32.5 % (15-42); LYMPHOCYTE COUNT 1.8 K/uL (1.0-2.8); MCH 30.7 PG (29.0-34.0); MCHC 31.4 G/DL (30.0-36.0); MCV 97.5 FL (83-99); MONOCYTE (%) 9.1 % (3-12); MONOCYTE COUNT 0.5 K/uL (0-0.8); NEUTROPHIL (%) 56.5 % (45-76); NEUTROPHIL COUNT 3.1 K/uL (1.8-6.4); PLATELET COUNT 228 K/uL (156-360); RBC DIS.WIDTH-CV 15.4 % (11.8-14.6); RBC DIS.WIDTH-SD 55.2 % (39-53); RED BLOOD COUNT 3.23 M/uL (3.80-5.20); WHITE BLOOD COUNT 5.5 K/uL (4.1-10.2)
[2018-01-23 05:40] LABS: TROP-I INTERPRETATION INDETERMINATE; TROPONIN-I 0.42 ng/mL (0.0-0.30)
[2018-01-23 05:56] LABS: CHLORIDE 98 MEQ/L (99-109); CREATININE 1.4 MG/DL (0.6-1.3); GFR ESTIMATE (CALCULATED) 40 mL/min/; POTASSIUM 3.3 MEQ/L (3.7-5.4); SODIUM 137 MEQ/L (136-147); UREA NITROGEN (BUN) 22 mg/dL (9-23)
[2018-01-23 05:58] LABS: GLUCOSE 86 mg/dL (70-99)
[2018-01-23 06:54] VITALS: BP 127/75
[2018-01-23 11:25] VITALS: BP 145/86
[2018-01-23] MEDS ORDERED: MORPHINE SULFAT60 MG PO (11:59)
[2018-01-23] MEDS ORDERED: QUETIAPINE FUMA25 MG PO (11:59)
[2018-01-23] MEDS ORDERED: MORPHINE SULFAT15 MG PO (11:59)
[2018-01-23] MEDS ORDERED: ALPRAZOLAM0.25 M2 PO (11:59)
== END 2018-01-23 14:17 | disposition home health service (06) | DRG 191 ==
LOC: EME 09:51 → 4EAST 13:21 → EDOF 13:21 → ENRESERV 13:25 → CANRESERV 13:25 → ENRESERV 13:56 → 4EAST 14:33
PROVIDERS: Emergency Medicine; Family Medicine
DX: J44.1 Chronic obstructive pulmonary disease with (acute) exacerbation (principal); R74.8 Abnormal levels of other serum enzymes; E87.6 Hypokalemia; L03.115 Cellulitis of right lower limb; I11.0 Hypertensive heart disease with heart failure; I50.32 Chronic diastolic (congestive) heart failure; G43.909 Migraine, unspecified, not intractable, without status migrainosus; M06.9 Rheumatoid arthritis, unspecified; K21.9 Gastro-esophageal reflux disease without esophagitis; E78.5 Hyperlipidemia, unspecified; E66.9 Obesity, unspecified; I35.0 Nonrheumatic aortic (valve) stenosis; G89.29 Other chronic pain; F31.30 Bipolar disorder, current episode depressed, mild or moderate severity, unspecified; F41.9 Anxiety disorder, unspecified; M32.9 Systemic lupus erythematosus, unspecified; E11.51 Type 2 diabetes mellitus with diabetic peripheral angiopathy without gangrene; F17.210 Nicotine dependence, cigarettes, uncomplicated; Z86.718 Personal history of other venous thrombosis and embolism; Z86.73 Personal history of transient ischemic attack (TIA), and cerebral infarction without residual deficits; Z95.828 Presence of other vascular implants and grafts; Z68.41 Body mass index [BMI] 40.0-44.9, adult; Z86.711 Personal history of pulmonary embolism; Z89.512 Acquired absence of left leg below knee; Z98.1 Arthrodesis status
CPT/HCPCS: 71045; 78582; 80048; 84484; 85025; 85610; 85730; 93005; 94799; 99281; 99284; A9540; A9567; J1644; J1650

== ENCOUNTER 2018-02-10 18:16 | Inpatient (IN) | payer OTHER ==
[~2018-02-10] VITALS: Ht 157.5 cm; Wt 94.2 kg
[2018-02-10] VITALS (8 sets, daily range): BP systolic 115–161; BP diastolic 74–94
[~2018-02-10 18:16] MED LIST changes: +ACETAMINOPHEN325 M1 PO; +DULCOLAX10 MG PR; +DUONEB 2.5-0.5 M3 ML AEROSOL; +FERROUS SULFAT324 M1 PO; +IBUPROFEN400 MG PO; +MILK OF MAGN PO; +NICORETTE4 MG BC; +POTASSIUM CHLO20 ME2 PO; +TRESIBA FL200 UNIT/1 SC
[2018-02-10 18:36] LABS: BASOPHIL (%) 0.4 % (0-1); BASOPHIL COUNT 0.1 K/uL (0-0.1); EOSINOPHIL (%) 0.6 % (0-5); EOSINOPHIL COUNT 0.1 K/uL (0-0.3); HEMATOCRIT 38.7 % (36.0-46.0); HEMOGLOBIN 13.2 G/DL (11.9-15.5); IMMATURE GRANULOCYTE (%) 0.3 % (0.0-0.7); LYMPHOCYTE (%) 20.4 % (15-42); LYMPHOCYTE COUNT 2.5 K/uL (1.0-2.8); MCH 31.7 PG (29.0-34.0); MCHC 34.1 G/DL (30.0-36.0); MCV 92.8 FL (83-99); MONOCYTE COUNT 0.6 K/uL (0-0.8); NEUTROPHIL (%) 73.3 % (45-76); PLATELET COUNT 266 K/uL (156-360); RBC DIS.WIDTH-CV 14.6 % (11.8-14.6); RBC DIS.WIDTH-SD 49.8 % (39-53); RED BLOOD COUNT 4.17 M/uL (3.80-5.20); WHITE BLOOD COUNT 12.3 K/uL (4.1-10.2)
[2018-02-10 18:40] LABS: INTER. NORMALIZED RATIO 1.2
[2018-02-10 18:42] LABS: PTT 53.5 SEC (25-37)
[2018-02-10 18:43] LABS: AMYLASE 48 IU/L (1-118); CHLORIDE 100 mEq/L (99-109); POTASSIUM 3.2 mEq/L (3.7-5.4); SODIUM 136 mEq/L (136-147)
[2018-02-10 18:44] LABS: GLUCOSE 181 mg/dL (70-99)
[2018-02-10 18:48] LABS: CREATININE 1.2 mg/dL (0.6-1.3); GFR ESTIMATE (CALCULATED) 48 mL/min/; SERUM ETHYL ALCOHOL < 10 mg/dL
[2018-02-10 18:49] LABS: UREA NITROGEN (BUN) 14 mg/dL (9-23)
[2018-02-10 18:51] LABS: LIPASE 41 U/L (1.0-51.0)
[2018-02-10 18:55] LABS: TROP-I INTERPRETATION NEGATIVE; TROPONIN-I 0.04 ng/mL (0.0-0.30)
[2018-02-11] VITALS (19 sets, daily range): BP systolic 101–153; BP diastolic 64–93
[2018-02-11 05:41] LABS: BASOPHIL (%) 0.4 % (0-1); EOSINOPHIL (%) 0.4 % (0-5); HEMATOCRIT 34.3 % (36.0-46.0); IMMATURE GRANULOCYTE (%) 0.3 % (0.0-0.7); LYMPHOCYTE (%) 21.9 % (15-42); LYMPHOCYTE COUNT 1.6 K/uL (1.0-2.8); MCH 30.5 PG (29.0-34.0); MCHC 32.4 G/DL (30.0-36.0); MCV 94.2 FL (83-99); MONOCYTE (%) 6.2 % (3-12); MONOCYTE COUNT 0.5 K/uL (0-0.8); NEUTROPHIL (%) 70.8 % (45-76); NEUTROPHIL COUNT 5.2 K/uL (1.8-6.4); PLATELET COUNT 218 K/uL (156-360); RBC DIS.WIDTH-CV 14.6 % (11.8-14.6); RBC DIS.WIDTH-SD 50.8 % (39-53); RED BLOOD COUNT 3.64 M/uL (3.80-5.20); WHITE BLOOD COUNT 7.3 K/uL (4.1-10.2)
[2018-02-11 05:47] LABS: HEMOGLOBIN 11.1 G/DL (11.9-15.5)
[2018-02-11 06:04] LABS: CHLORIDE 106 MEQ/L (99-109); CREATININE 1.1 MG/DL (0.6-1.3); GFR ESTIMATE (CALCULATED) 53 mL/min/; HDL CHOLESTEROL 25 MG/DL (Desirable>=50); LDL CHOLESTEROL 120 mg/dL (Desirable<100); NON-HDL CHOLESTEROL 158 mg/dL (Desirable<160); POTASSIUM 3.8 MEQ/L (3.7-5.4); SODIUM 138 MEQ/L (136-147); TOTAL CHOLESTEROL 183 mg/dL (Desirable<200); TRIGLYCERIDES 191 MG/DL (Normal: <150); UREA NITROGEN (BUN) 11 mg/dL (9-23)
[2018-02-11 06:07] LABS: GLUCOSE 91 mg/dL (70-99)
[2018-02-11 06:20] LABS: TROP-I INTERPRETATION POSITIVE; TROPONIN-I 4.46 ng/mL (0.0-0.30)
[2018-02-11 07:01] LABS: CREATINE KINASE 148 IU/L (1-294); TOTAL CK 148 IU/L (1-294)
[2018-02-11 07:23] LABS: CK-MB 17.5 ng/mL (0.0-4.9); CKMB RELATIVE INDEX 11.8 (0.0-3.9)
[2018-02-11 08:58] LABS: HEMOGLOBIN A1c (GLYCOHEMOGLOB) 5.3 % (Below 5.7)
[2018-02-11 12:08] LABS: TROP-I INTERPRETATION POSITIVE; TROPONIN-I 3.83 ng/mL (0.0-0.30)
[2018-02-11 12:22] LABS: CREATINE KINASE 129 IU/L (1-294); TOTAL CK 129 IU/L (1-294)
[2018-02-11 13:04] LABS: CK-MB 12.3 ng/mL (0.0-4.9); CKMB RELATIVE INDEX 9.5 (0.0-3.9)
[2018-02-11 18:23] LABS: CK-MB 7.7 ng/mL (0.0-4.9); TROP-I INTERPRETATION POSITIVE; TROPONIN-I 2.32 ng/mL (0.0-0.30)
[2018-02-11 18:24] LABS: CKMB RELATIVE INDEX 8.1 (0.0-3.9); CREATINE KINASE 95 IU/L (1-294); TOTAL CK 95 IU/L (1-294)
[2018-02-12 02:56] VITALS: BP 140/81
[2018-02-12 07:33] VITALS: BP 146/65
[2018-02-12] MEDS ORDERED: ASPIR-LOW81 MG PO (09:20)
[2018-02-12] MEDS ORDERED: LOPRESSOR25 MG PO (09:22)
[2018-02-12] MEDS ORDERED: NICORETTE4 MG BC (09:22)
[2018-02-12] MEDS ORDERED: LISINOPRIL2.5 MG PO (09:22)
[2018-02-12] MEDS ORDERED: ATORVASTATIN CA80 MG PO (09:22)
[2018-02-12] MEDS ORDERED: BRILINTA90 MG PO (09:22)
[2018-02-12] MEDS ORDERED: ALPRAZOLAM0.25 M2 PO (10:55)
== END 2018-02-12 10:56 | disposition home or self-care (01) | DRG 247 ==
LOC: EME 18:16 → ENRESERV 18:32 → EME 18:59 → CATH 18:59 → ENRESERV 19:43 → 2SOUTH 20:20 → 4WEST 20:20 → ENRESERV 02-11 12:01 → 4WEST 02-11 17:52 → ENRESERV 02-11 18:50 → 4EAST 02-11 20:53
PROVIDERS: Emergency Medicine; Internal Medicine; Internal Medicine Cardiovascular Disease
DX: I21.21 ST elevation (STEMI) myocardial infarction involving left circumflex coronary artery (principal); I25.10 Atherosclerotic heart disease of native coronary artery without angina pectoris; E66.01 Morbid (severe) obesity due to excess calories; Z68.37 Body mass index [BMI] 37.0-37.9, adult; I27.20 Pulmonary hypertension, unspecified; I10 Essential (primary) hypertension; E11.9 Type 2 diabetes mellitus without complications; J44.9 Chronic obstructive pulmonary disease, unspecified; E78.5 Hyperlipidemia, unspecified; I35.0 Nonrheumatic aortic (valve) stenosis; K21.9 Gastro-esophageal reflux disease without esophagitis; I25.2 Old myocardial infarction; F17.200 Nicotine dependence, unspecified, uncomplicated; Z71.6 Tobacco abuse counseling; Z86.718 Personal history of other venous thrombosis and embolism; Z86.73 Personal history of transient ischemic attack (TIA), and cerebral infarction without residual deficits; Z89.512 Acquired absence of left leg below knee; Z90.710 Acquired absence of both cervix and uterus; Z95.828 Presence of other vascular implants and grafts; Z79.4 Long term (current) use of insulin
CPT/HCPCS: 80048; 80061; 81003; 82150; 82550; 82550 91; 82553; 82948; 83036; 83690; 84484; 85025; 85347; 85610; 85730; 86850; 86900; 86901; 87641; 93005; 94760; 94799; 99281; 99285; C1725; C1757; C1769; C1874; C1887; C1894; G0480; J1644; J2250; J2270; J2405; J3010; J3246; J3480; J7030